=== PATIENT | male | born 2000 | race Caucasian/White ===

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

== ENCOUNTER 2023-05-14 16:19 | Emergency (ER) | payer OTHER ==
[~2023-05-14] VITALS: Ht 188 cm; Wt 86.2 kg
[~2023-05-14 16:19] MED LIST: NAPR-1704 PO
[2023-05-14 16:33] VITALS: BP 112/53; PULSE 62; RESP 16; TEMP 98; O2SAT 99
[2023-05-14] MEDS ORDERED: IBUP-2213 PO (17:58)
[2023-05-14 18:12] VITALS: BP 112/53; PULSE 62; RESP 16; TEMP 98; O2SAT 99
[2023-05-14] MEDS: IBUPROFEN 600 MG TAB PO ONE (18:12)
== END 2023-05-14 18:13 | disposition home or self-care (01) ==
LOC: MED 16:19
DX: S93.491A Sprain of other ligament of right ankle, initial encounter (principal); J45.909 Unspecified asthma, uncomplicated; Z79.899 Other long term (current) drug therapy; W17.89XA Other fall from one level to another, initial encounter; Y93.89 Activity, other specified; Y92.89 Other specified places as the place of occurrence of the external cause; Y99.8 Other external cause status
CPT/HCPCS: 73610; 99283